=== PATIENT | female | born 1960 | race Caucasian/White ===

== ENCOUNTER 2025-09-16 17:13 | Emergency (ER) | payer MEDICARE, SELFPAY ==
--- OUTSIDE RECORDS SUMMARY | 2024-03-01 09:37 | XMS_ITS | Continuity of Care Document ---
Author Organization 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 May substitute with whatever prep you can get Sutab 1.479-0.188-0.225 gram tablet take by oral route as directed per package instructions for procedure on 12/12/21 - Active pt to bring in coupon Keflex 500 mg capsule take 1 capsule by oral route every 8 hours for 7 500 MG - Active metformin ER 500 mg tablet,extended release 24 hr take 2 tablet by oral route every day with the evening meal 1000 MG - Active anastrozole 1 mg tablet take 1 tablet by oral route every day 1 MG - Active Jardiance 25 mg tablet take 1 tablet by oral route every day 25 MG - Active amlodipine 5 mg tablet take 1 tablet by oral route every day 5 MG - Active aspirin 81 mg tablet,delayed release take 1 tablet by oral route every day 81 MG - Active atorvastatin 40 mg tablet take 1 tablet by oral route every day 40 MG - Active Insulin Syringe MicroFine 1 mL 27 gauge x 5/8 use to inject insulin daily - Active Levemir U-100 Insulin 100 unit/mL subcutaneous solution inject 90 units under the skin every day - Active losartan 100 mg tablet take 1 tablet by oral route every day 100 MG - Active multivitamin capsule take 1 Capsule by Oral route once daily - Active True Metrix Glucose Test Strip use one strip to test twice daily fasting and two hours after eating - Active Victoza 3-Jesse 0.6 mg/0.1 mL (18 mg/3 mL) subcutaneous pen injector inject 0.6 milliliter by subcutaneous route daily x1 week then increase to 1.2mg daily - Active Procedures Procedure Date COLONOSCOPY AND BIOPSY SIGMOIDOSCOPY W/TUMR REMOVE DIAGNOSTIC COLONOSCOPY ELECTROCARDIOGRAM REPORT OFFICE/OUTPATIENT VISIT, EST POSTOP FOLLOW-UP VISIT PARTIAL MASTECTOMY BIOPSY/REMOVAL, LYMPH NODES US Exam, Breast Complete LYMPH SYSTEM IMAGING Tc99m sulfur colloid OFFICE/OUTPATIENT VISIT, EST Surgical trays Breast Biopsy First Lesion W Imaging March OFFICE CONSULTATION Advance Directives Directive Yes / No Effective Date File Name No Information Encounters Encounter Description Practice Location Reason(s) For Visit Diagnoses Date Provider Providers Copied on Encounter [facility], [address] [place], [place], [id number] , [place] tel: [phone] PAK No Information 4 Giacomo Bush. [address], [place], [id number] , [place]. tel: [phone] [facility], [address], [place], [id number] , [place] tel: [phone] [facility] No Information 4 Giacomo Bush. [address], [place], [id number] , [place]. tel: [phone] Referring Provider: Inga Zapata, [address], [place], [address]. tel:[phone] [facility], [address], [place], [id number] , [place] tel: [phone] PAK No Information 4 Giacomo Bush. [address] [place], [id number] , [place]. tel: [phone] [facility], [address] [place], [address] , [place] tel: [phone] [facility] No Information 2 Giacomo Bush. [address], [address] , [place]. tel: [phone] Referring Provider: Andres Beverly, [address] [place], [address]. tel:[phone] [facility], [address], [place], [address] , [place] tel: [phone] [facility] No Information 2 Riky Gordon. [address], [place], [id number] , [place]. tel: [phone] Referring Provider: Andres Beverly, [address] [place], [address]. tel:[phone] [facility], [address] [place], [address] , [place] tel: [phone] [facility] No Information 1 Riky Gordon. [address], [place], [id number] , [place]. tel: [phone] [facility], [address] [place], [id number] , [place] tel: [phone] [facility] No Information 0 Arvin Mancini. [address], [id number] , [place]. tel: [phone] Referring Provider: Blanca Shannon, [address] [place], [address] . tel:[phone] OFFICE/OUTPATI ENT VISIT, [facility], [address], [address] , [place] tel: [phone] [facility] Left Breast tenderness (chief complaint) Acute mastitis of left breast Collin Christo. [address], [address] , [place]. tel: [phone] Referring Provider: Heber Mares, [address] [place], [address]. tel:[phone] [facility], [address] [place], [id number] , [place] tel: [phone] [facility] PO Lt Breast Lumpectomy w/SLN Exc 05/12 (chief complaint) Encounter for other specified surgical aftercare 9 Collin Christo. [address], [id number] , [place]. tel: [phone] Referring Provider: Christo Maldonado, [place], [address] . tel:[phone] [facility], [address] [place], [id number] , [place] tel: [phone] [facility] No Information Collin Christo. [address] [place], [address] , [place]. tel: [phone] Referring Provider: Christo Maldonado, [place], [address] . tel:[phone] [facility], [address] [place], [id number] , [place] tel: [phone] [facility] No Information Collin Christo. [address] [place], [address] , [place]. tel: [phone] Referring Provider: Christo Maldonado, [place], [address] . tel:[phone] OFFICE/OUTPATI ENT VISIT, EST [facility], [address] [place], [id number] , [place] tel: [phone] [facility] Consult Lt Breast Cancer (chief complaint) Malignant neoplasm of upper-outer quadrant of left breast in female, estrogen receptor positiveEstrogen receptor positive status [ER+] Collin Christo. [address], [place], [id number] , . tel: [phone] Referring Provider: Amy Pillai, [address] [place] [address], [address]. tel:[phone] OFFICE CONSULTATION [facility], [address], [place], [id number] , tel: [phone] [facility] Breast Lump (chief complaint) Breast mass in female 9 Collin Christo. [address], [place], [id number] , . tel: [phone] Referring Provider: Amy Pillai, [address] [place] [address], [address]. tel:[phone] [facility], [address], [place], [id number] , tel: [phone] [facility] No Information 9 Collin Christo. [address], [place], [id number] , . tel: [phone] Family History Family Member Type Diagnosis Age At Onset Father Problem (finding) Maternal uncle Problem (finding) Myocardial infarction Mother Problem (finding) Alive and well Father Problem (finding) Myocardial infarction Paternal uncle Problem (finding) Myocardial infarction Mother Problem (finding) Diabetes mellitus Problem (finding) Paternal uncle Problem (finding) Alive and well Paternal uncle Problem (finding) Maternal uncle Problem (finding) Alive and well Payers Payer name Insurance type Covered constitution party ID Authoriza tion(s) [facility] [id number] Social History Type Description Quantity Date Captured Comments Sex Female Smoking Status No Information Chief Complaint And Reason For Visit No Information Reason For Referral Reason For Referral No Information History Of Present Illness Encounter Date Complaint History Of Prese nt Illness Left Breast tenderness The sympt oms began 1 week ago. The symptoms are reported as being mild. The symptoms occur constantly. The location is left breast. The patient developed swelling and tenderness of her left breast about a week ago. The patient notes that it is uncomfortable. She notes no masses that she is identified. The patient underwent sonogram which I reviewed which shows no significant abnormalities. The patient is due for a bilateral mammogram 6 months after her radiation which would be in January. PO Lt Breast Lumpect yvon w/SLN Exc 05/12 Patient returns after undergoing successful left breast lumpectomy and sentinel lymph node excision. The patient is doing well and the incisions are healing well. The patient's pathology revealed a 1.3 cm tumor which was not metastatic to the lymph nodes. The patient's tumor was sent for Oncotype. The patient is going to be referred to oncology when that Oncotype test is back. The patient deny are pleased with her operative outcome. I greatly appreciate you involving me in the care of this patient. Should I be able to help you any further with this patient or any other patient in the future please do not hesitate to let me know. Consult Lt Breast Cancer The sym ptoms began 1 week ago. The symptoms are reported as being mild. The symptoms occur constantly. The location is left breast. The patient had a left breast mass that was seen on mammogram and underwent ultrasound guided biopsy by me after a previous biopsy was negative. 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 The patient comes to see me to discuss management. This mass was present at the 12 o'clock position. Lt Breast Lump The symptoms beg an 2 months ago. The symptoms are reported as being mild. The symptoms occur constantly. The location is left breast. The patient has a left breast mass that was felt on self exam. The patient underwent mammogram and sonogram and was found to have a BI-RADS Category 4 lesion. The patient underwent ultrasound guided biopsy. The patient was found to have mild fibrosis and chronic inflammation. The patient comes to discuss this mass.I reviewed the patient's mammogram films and ultrasound films. The patient appears to have a BI-RADS Category 5 mass on my evaluation. In addition the biopsy clip does not look like it is in the same position as the mass and there is defects within the tissue of the breast that appear to be in a different place than the mass as well. Functional Status Date Functional Assessmen t No Information Instructions Date Instruction Additional Infor sterling The patient has what appears to be mastitis of her left breast. I don't really see any significant abnormalities on her ultrasound or physical exam that are concerning. The patient is due for a mammogram in January and I don't know that we need to really do one now because I think that this is either related to radiation change or more likely mastitis. The patient is going to call me if things get worse but we will order a mammogram and bilateral breast MRI in January to evaluate things. I reassured the patient that the findings on physical exam and ultrasound are reassuring that there is no significant pathologic process occurring here other than infection in the setting of previous surgery and radiation. The patients has benign findings on radiology and physical exam. At this point will continue to observe but not procede with any further intervention. I did discuss with patient observation vs. biopsy vs. excision. After discussion patient wants to procede with observation. Related to Acute mastitis of left breast Increase activity. Related to En counter for other specified surgical aftercare The patient has a br east cancer at the 12 o'clock position of her left breast. We discussed in detail the options and after this discussion the patient wants to proceed with a lumpectomy and sentinel lymph node excision. The patient wishes to proceed I discussed with patient the pathogenesis and prognosis of breast cancer. I discussed the patients imaging and path reports with her. I discussed the options for treating breast cancer and discussed multimodalitiy treatment. After this lenghty discussion the patient wants to procede with surgery. I discussed the staging portion of the procedure and the tumor control/excision portion. I discussed the risks, benefits, and alternatives to the operation. The patient wishes to proceed. She understands that the risks include but are not limited to bleeding, infection, reoccurance (local or systemic), surrounding structure injury, WI, DVT, even . Related to Malignant neoplasm of upper-outer quadrant of left breast in female, estrogen receptor positive The patient has a br east mass that I think is very concerning for a left breast cancer. Looking at the films and reviewing things, I think that the lesion was not biopsied and the area around the lesion was biopsied. I don't think that this biopsy result is consistent with the clinical findings and have suggested a repeat biopsy, which I did in the office today. I think the patients breast mass is likely malignant. I discussed with patient observation vs. biopsy vs. excision. After discussion patient wants to procede with biopsy. Discussed with patient risks, benefits and alternatives, to procedure and the patient wishes to procede. The patient understands that the risks are bleeding, infection, nondiagnostic biopsy. The patient wishes to procede. Related to Breast mass in female Assessments Type Assessment Date No Information Patient Care Teams Name Effective Dates (start - stop) Status Members No Information
[2025-09-16 17:21] VITALS: BP 136/76; PULSE 128; RESP 18; TEMP 39; O2SAT 95; BMI 20.7
--- NOTE | 2025-09-16 17:27 | XRR_ITS ---
PROCEDURE INFORMATION: Exam: XR Chest Exam date and time: 09/16/2025 5:34 PM Age: 65 years old Clinical indication: Other: Sepsis; Prior surgery; Surgery date: 6+ months; Surgery type: Lumpectomy; Additional info: Possible sepsis TECHNIQUE: Imaging protocol: Radiologic exam of the chest. Views: 1 view. COMPARISON: No relevant prior studies available. FINDINGS: Lungs: Unremarkable. No consolidation. Pleural spaces: Unremarkable. No pleural effusion. No pneumothorax. Heart/Mediastinum: Mild tortuosity thoracic aorta. No cardiomegaly. Bones/joints: Mild degenerative changes thoracic spine. Mild degenerative changes glenohumeral joints. Upper abdomen: Unremarkable. Chest wall : Surgical clips left breast. XR/XR chest 1V portable 34000 IMPRESSION: No acute findings.
--- NOTE | 2025-09-16 17:31 | CTR_ITS ---
PROCEDURE INFORMATION: Exam: CT Abdomen And Pelvis With Contrast Exam date and time: 09/16/2025 7:29 PM Age: 65 years old Clinical indication: Abdominal pain; Localized; Prior surgery; Surgery date: 6+ months; Surgery type: Hysterectomy; C/O upper abd pain TECHNIQUE: Imaging protocol: Computed tomography of the abdomen and pelvis with contrast. Radiation optimization: All CT scans at this facility use at least one of these dose optimization techniques: automated exposure control; mA and/or kV adjustment per patient size (includes targeted exams where dose is matched to clinical indication); or iterative reconstruction. Contrast material: OMNI 350; Contrast volume: 80 ml; Contrast route: INTRAVENOUS (IV); COMPARISON: CR (CHEST, ) 09/16/2025 5:34 PM RADIATION DOSE METRICS: Total DLP (mGy-cm): 387.62 FINDINGS: Lower chest: Heart size is normal. Lungs are clear of an acute process. Liver: Normal. No mass. Gallbladder and biliary ducts: Normal. No calcified stones. No ductal dilation. Pancreas: Normal. No ductal dilation. Spleen: Normal. No splenomegaly. Adrenal glands: Normal. No mass. Kidneys and ureters: Normal. No hydronephrosis. Stomach and bowel: Stomach unremarkable. Diffuse wall thickening, thickening of the folds, of the small bowel left lower abdomen, mid and lower abdomen and upper pelvis. Distension of small bowel measuring up to 3.8 cm in diameter. Mesenteric edema and enlarged mesenteric lymph nodes on the left measuring up to 1.57 cm in diameter. The colon is not involved. Colon contains aytegsll-ja-woezo amount of fecal material. No obstruction. No wall thickening of the colon. Appendix: No evidence of appendicitis. Intraperitoneal space: Unremarkable. No free air. No significant fluid collection. Vasculature: Moderate atherosclerosis abdominal aorta. No abdominal aortic aneurysm. Lymph nodes: Unremarkable. No enlarged lymph nodes. Urinary bladder: Moderate distension. Reproductive: Apparent hysterectomy. Bones/joints: Narrowing of L5-S1 disc space with vacuum disc phenomenon. Adjacent degenerative changes vertebral bodies. Milder degenerative changes elsewhere. Soft tissues: Unremarkable. CT/CT abdomen pelvis w con* [id number] IMPRESSION: 1. Findings most consistent with a diffuse enteritis most marked involving jejunum. Wall thickening, distension, mesenteric edema and enlarged mesenteric lymph nodes. This probably inflammatory/infectious. Crohn's disease should be considered . 2. Juacvsna-dp-mgtpx amount of fecal material in the colon. Correlate for symptoms of constipation. 3. Atherosclerosis. 4. Hysterectomy. 5. Degenerative changes lumbar spine marked at L5-S1. 6. Moderate distension of the urinary bladder.
--- NOTE | 2025-09-16 17:32 | ED_ITS ---
Documented by User: Bismark Carrillo MD 09/16/25 17:48 HPI - Abdominal Pain 2 General: Chief Complaint: Abdominal Pain Stated Complaint: dizzy, tingling in legs since yesterday Time Seen by Provider: 09/16/25 17:28 Source: patient Mode of arrival: ambulatory Limitations: no limitations History of Present Illness: 65-year-old female states she is abdomin al pain since this morning. States been diffuse pain also has been febrile is febrile 102 here. States that pain is sharp in nature rates it a 6 out of 10 she denies any vomiting or diarrhea she denies any dysuria. Denies any worse improved factors. Associated Symptoms: Reports chills and fever(s) Related Data Previous Rx's ?Medication ?Instructions ?Recorded ciprofloxacin HCl 500 mg tablet 500 mg PO BID #14 tabs 09/16/25 metronidazole 500 mg tablet 500 mg PO Q8H 7 days #21 t abs 09/16/25 ondansetron 4 mg disintegrating 4 mg PO Q6H PRN nausea and 09/16/25 tablet vomiting #14 tabs Allergies Allergy/AdvReac Type Severity Reaction Status Date / Time No Known Allergies Allergy Verified 09/16/25 17:26 Review of Systems 2 Const: Reports: fever(s) and chills Resp: Reports: dyspnea Physical Exam 2 Const: COMMON NORMALS: patient oriented x3 HENMT: COMMON NORMALS: normocephalic and atraumatic HEAD & SCALP: n ormocephalic and atraumatic Neck/C-Spine: COMMON NORMALS: full ROM and supple Chest: COMMONS NORMALS: normal inspection of the chest and normal palpation of entire chest wall Resp: COMMON NORMALS: normal respiratory effort, No retractions, No use of accessory muscles and clear to auscultation bilaterally AUSCULTATION: clear to auscultation bilaterally Cardio: COMMON NORMALS: regular rhythm and No murmurs present (Cardio) R ATE: tachycardic RHYTHM: regular rhythm GI: COMMON NORMALS: Normal to inspection, nondistended, normoactive bowel sounds present, Soft to palpation and no masses PALPATION: Yes Soft to palpation OTHER: diffuse tenderness Extremity: COMMON NORMALS: normal to inspection and full ROM Neuro: COMMON NORMALS: patient oriented x3, moves all extremities and no focal motor deficits Psych: COMMON NORMALS: mental status grossly normal, Normal thought process present and cooperative THOUGHT PROCESS: Normal thought process present Skin: COMMON NORMALS: no rashes or lesions noted and no wounds GENERAL SKIN EXAM: no rashes or lesions noted Course 2 Vital Signs: Vital signs: Vital Signs Temperature 99.8 F H 09/16/25 19:22 Pulse Rate 89 09/16/25 20:23 Respiratory Rate 18 09/16/25 17:21 Blood Pressure 120/68 09/16/25 21:07 Pulse Oximetry 94 09/16/25 20:23 Oxygen Delivery Me thod Room Air 09/16/25 20:23 MDM - Abdominal Pain Medical Decision Making Patient presents with fever along with abdominal pain. I did order labs along with sepsis bolus and blood cultures. Patient's care turned over to Dr. Palacio at this time with labs and CT imaging pending. Medical Records I reviewed the patient's medical records. Lab Data I reviewed the patient's lab results. 09/16/25 17:50 09/16/25 17:50 Labs/Radiology: Radiology Impressions Chest X-Ray 09/16/25 17:27 IMPRESSION: No acute findings. Abdomen/Pelvis CT 09/16/25 17:31 IMPRESSION: 1. Findings most consistent with a diffuse enteritis most marked involving jejunum. Wall thickening, distension, mesenteric edema and enlarged mesenteric lymph nodes. This probably inflammatory/infectious. Crohn's disease should be considered . 2. [id number] amount of fecal material in the colon. Correlate for symptoms of constipation. 3. Atherosclerosis. 4. Hysterectomy. 5. Degenerative changes lumbar spine marked at L5-S1. 6. Moderate distension of the urinary bladder. Laboratory Results WBC 10.15 10^3/uL (3.29-11.43) 09/16/25 17:50 RBC 4.93 10^6/uL (3.85-5.65) 09/16/25 17:50 Hgb 14.20 g/dL (11.27-16.99) 09/16/25 17:50 Hct 42.2 % (36-47) 09/16/25 17:50 MCV 85.6 fl (85-98) 09/16/25 17:50 MCH 28.8 pg (27-33) 09/16/25 17:50 MCHC 33.6 g/dL (30-55) 09/16/25 17:50 RDW 12.1 % (12.1-15.1) 09/16/25 17:50 Plt Count 253 10^3/cmm (157-399) 09/16/25 17:50 MPV 9.6 fL (7.4-10.4) 09/16/25 17:50 Neut % (Auto) 82.5 % 09/16/25 17:50 Lymph % (Auto) 8.7 % 09/16/25 17:50 Real % (Auto) 7.5 % 09/16/25 17:50 Eos % (Auto) 0.6 % 09/16/25 17:50 Baso % (Auto) 0.4 % 09/16/25 17:50 Neut # (Auto) 8.38 10^3/uL (1.8-7.7) H 09/16/25 17:50 Lymph # (Auto) 0.9 10^3/uL (0.8-4.8) 09/16/25 17:50 Real # (Auto) 0.8 10^3/uL (0.2-0.9) 09/16/25 17:50 Eos # (Auto) 0.1 10^3/uL (0.0-0.8) 09/16/25 17:50 Baso # (Auto) 0.0 10^3/uL (0.0-0.1) 09/16/25 17:50 Nucleated RBC % (auto) 0 % 09/16/25 17:50 Nucleated RBCs # 0.0 /100WBC 09/16/25 17:50 Sodium 131 mmol/L (136-145) L 09/16/25 17:50 Potassium 4.0 mmol/L (3.5-5.1) 09/16/25 17:50 Chloride 97 mmol/L (98-107) L 09/16/25 17:50 Carbon Dioxide 19 mmol/L (22-29) L 09/16/25 17:50 Anion Gap 19.0 (5-19) 09/16/25 17:50 BUN 11 mg/dL (8-23) 09/16/25 17:50 Creatinine 0.5 mg/dL (0.5-0.9) 09/16/25 17:50 GFR Calculation 123.8 mL/min (90-130) 09/16/25 17:50 Glucose 203 mg/dL (65-115) H 09/16/25 17:50 Calculated Osmolality 277 mOsm/kg (285-295) L 09/16/25 17:50 Lactic Acid 1.4 mmol/L (0.5-2.2) 09/16/25 17:50 Calcium 9.6 mg/dL (8.5-10.5) 09/16/25 17:50 Total Bilirubin 0.6 mg/dL (0.15-1.2) 09/16/25 17:50 AST 17 U/L (0-32) 09/16/25 17:50 ALT 14 U/L (0-33) 09/16/25 17:50 Alkaline Phosphatase 89 U/L (35-105) 09/16/25 17:50 Total Protein 7.4 g/dL (6.6-8.7) 09/16/25 17:50 Albumin 4.0 g/dL (3.5-5.2) 09/16/25 17:50 Globulin 3.4 g/dL (1.3-4.6) 09/16/25 17:50 Urine Color Yellow (Yellow) 09/16/25 19:15 Urine Appearance Clear (CLEAR) 09/16/25 19:15 Urine pH 5.0 (5-7) 09/16/25 19:15 Ur Specific Presto 1.051 (1.005-1.030) H 09/16/25 19:15 Urine Protein Negative (Negative) 09/16/25 19:15 Urine Glucose (UA) 3+ (Normal) H 09/16/25 19:15 Urine Ketones 1+ (Negative) H 09/16/25 19:15 Urine Blood Negative (Negative) 09/16/25 19:15 Urine Nitrate Negative (Negative) 09/16/25 19:15 Urine Bilirubin Negative (Negative) 09/16/25 19:15 Urine Urobilinogen 0.2 mg/dL (Negative) 09/16/25 19:15 Ur Leukocyte Esterase Negative (Negative) 09/16/25 19:15 Urine RBC 0-2 /hpf (0-2) 09/16/25 19:15 Urine WBC 0-5 /hpf (0-5) 09/16/25 19:15 Ur Squamous Epith Cells 0-5 /hpf (0-5) 09/16/25 19:15 Amorphous Sediment Not Reportable 09/16/25 19:15 Urine Bacteria None seen /hpf (NONE) 09/16/25 19:15 Hyaline Casts 0-4 /lpf H 09/16/25 19:15 Influenza A (PCR) Negative (Negative) 09/16/25 17:50 Influenza Type B (PCR) Negative (Negative) 09/16/25 17:50 RSV (PCR) Negative (Negative) 09/16/25 17:50 SARS-CoV-2 (PCR) Negative (Negative) 09/16/25 17:50 All radiology interpretation(s) finalized by discharge EKG Data EKG 1: I personally reviewed and interpreted this EKG as follows: EKG interpretation date: 09/16/25 EKG interpretation time: 17:34 Interpretation: sinus tach hr [address] elevation qrs 96 qtc 411 Discharge Plan Discharge Patient Disposition: Home Clinical Impression: Enteritis Condition: Stable Prescriptions: New ciprofloxacin HCl 500 mg tablet 500 mg PO BID Qty: 14 0RF metronidazole 500 mg tablet 500 mg PO Q8H 7 Days Qty: 21 0RF ondansetron 4 mg tablet,disintegrating 4 mg PO Q6H PRN (Reason: nausea and vomiting) Qty: 14 0RF Discharge Orders: Discharge ED (Routine); Ordered 09/16/25 Ordered By: Reggie Palacio Patient Instructions: Abdominal Pain (ED), Enteritis (ED), Opioid Safety, Pain Management, Patient Portal & Quentin Instructions Activity Restrictions/Additional Instructions: Antibiotics as directed. Drink plenty of liquids. Return for worsening pain despite treatment, fever despite 3-4 more doses of antibiotics, vomiting liquids or medications, any other concerning symptoms. Follow-up with your doctor. Call tomorrow for follow-up appointment. Print Language: Yi Coding Level of Care Code ED Epic Ambulatory Analyst for Chg Fwd Documented by User: Reggie Palacio DO 09/16/25 21:13 HPI - Abdominal Pain 2 General: Chief Complaint: Abdominal Pain Stated Complaint: dizzy, tingling in legs since yesterday Time Seen by Provider: 09/16/25 17:28 Related Data Previous Rx's ?Medication ?Instructions ?Recorded ciprofloxacin HCl 500 mg tablet 500 mg PO BID #14 tabs 09/16/25 metronidazole 500 mg tablet 500 mg PO Q8H 7 days #21 t abs 09/16/25 ondansetron 4 mg disintegrating 4 mg PO Q6H PRN nausea and 09/16/25 tablet vomiting #14 tabs Allergies Allergy/AdvReac Type Severity Reaction Status Date / Time No Known Allergies Allergy Verified 09/16/25 17:26 Course 2 Vital Signs: Vital signs: Vital Signs Temperature 99.8 F H 09/16/25 19:22 Pulse Rate 89 09/16/25 20:23 Respiratory Rate 18 09/16/25 17:21 Blood Pressure 120/68 09/16/25 21:07 Pulse Oximetry 94 09/16/25 20:23 Oxygen Delivery Me thod Room Air 09/16/25 20:23 MDM - Abdominal Pain Medical Decision Making Patient presents with fever along with abdominal pain. I did order labs along with sepsis bolus and blood cultures. Patient's care turned over to Dr. Palacio at this time with labs and CT imaging pending. 65-year-old female received in checkout from Dr. Carrillo at shift change. Temperature is improved after acetaminophen. She is resting comfortably. She remains normotensive. Heart rate is down below 100 as well after fluid bolus. CBC is normal. BMP shows a sodium of 131 bicarbonate 19. Urinalysis is negative. CT shows a significant enteritis worst involving the jejunum. There is some lymph nodes as well. Likely the source of her symptoms. Swabs for flu COVID and RSV are negative. Given the significance of her symptoms, fever, and CT findings, she will be covered with antibiotics. She is stable for discharge. Return for new or worsening symptoms. Lab Data 09/16/25 17:50 09/16/25 17:50 Labs/Radiology: Radiology Impressions Chest X-Ray 09/16/25 17:27 IMPRESSION: No acute findings. Abdomen/Pelvis CT 09/16/25 17:31 IMPRESSION: 1. Findings most consistent with a diffuse enteritis most marked involving jejunum. Wall thickening, distension, mesenteric edema and enlarged mesenteric lymph nodes. This probably inflammatory/infectious. Crohn's disease should be considered . 2. Jieoqbly-mv-izxgh amount of fecal material in the colon. Correlate for symptoms of constipation. 3. Atherosclerosis. 4. Hysterectomy. 5. Degenerative changes lumbar spine marked at L5-S1. 6. Moderate distension of the urinary bladder. Laboratory Results WBC 10.15 10^3/uL (3.29-11.43) 09/16/25 17:50 RBC 4.93 10^6/uL (3.85-5.65) 09/16/25 17:50 Hgb 14.20 g/dL (11.27-16.99) 09/16/25 17:50 Hct 42.2 % (36-47) 09/16/25 17:50 MCV 85.6 fl (85-98) 09/16/25 17:50 MCH 28.8 pg (27-33) 09/16/25 17:50 MCHC 33.6 g/dL (30-55) 09/16/25 17:50 RDW 12.1 % (12.1-15.1) 09/16/25 17:50 Plt Count 253 10^3/cmm (157-399) 09/16/25 17:50 MPV 9.6 fL (7.4-10.4) 09/16/25 17:50 Neut % (Auto) 82.5 % 09/16/25 17:50 Lymph % (Auto) 8.7 % 09/16/25 17:50 Real % (Auto) 7.5 % 09/16/25 17:50 Eos % (Auto) 0.6 % 09/16/25 17:50 Baso % (Auto) 0.4 % 09/16/25 17:50 Neut # (Auto) 8.38 10^3/uL (1.8-7.7) H 09/16/25 17:50 Lymph # (Auto) 0.9 10^3/uL (0.8-4.8) 09/16/25 17:50 Real # (Auto) 0.8 10^3/uL (0.2-0.9) 09/16/25 17:50 Eos # (Auto) 0.1 10^3/uL (0.0-0.8) 09/16/25 17:50 Baso # (Auto) 0.0 10^3/uL (0.0-0.1) 09/16/25 17:50 Nucleated RBC % (auto) 0 % 09/16/25 17:50 Nucleated RBCs # 0.0 /100WBC 09/16/25 17:50 Sodium 131 mmol/L (136-145) L 09/16/25 17:50 Potassium 4.0 mmol/L (3.5-5.1) 09/16/25 17:50 Chloride 97 mmol/L (98-107) L 09/16/25 17:50 Carbon Dioxide 19 mmol/L (22-29) L 09/16/25 17:50 Anion Gap 19.0 (5-19) 09/16/25 17:50 BUN 11 mg/dL (8-23) 09/16/25 17:50 Creatinine 0.5 mg/dL (0.5-0.9) 09/16/25 17:50 GFR Calculation 123.8 mL/min (90-130) 09/16/25 17:50 Glucose 203 mg/dL (65-115) H 09/16/25 17:50 Calculated Osmolality 277 mOsm/kg (285-295) L 09/16/25 17:50 Lactic Acid 1.4 mmol/L (0.5-2.2) 09/16/25 17:50 Calcium 9.6 mg/dL (8.5-10.5) 09/16/25 17:50 Total Bilirubin 0.6 mg/dL (0.15-1.2) 09/16/25 17:50 AST 17 U/L (0-32) 09/16/25 17:50 ALT 14 U/L (0-33) 09/16/25 17:50 Alkaline Phosphatase 89 U/L (35-105) 09/16/25 17:50 Total Protein 7.4 g/dL (6.6-8.7) 09/16/25 17:50 Albumin 4.0 g/dL (3.5-5.2) 09/16/25 17:50 Globulin 3.4 g/dL (1.3-4.6) 09/16/25 17:50 Urine Color Yellow (Yellow) 09/16/25 19:15 Urine Appearance Clear (CLEAR) 09/16/25 19:15 Urine pH 5.0 (5-7) 09/16/25 19:15 Ur Specific Presto 1.051 (1.005-1.030) H 09/16/25 19:15 Urine Protein Negative (Negative) 09/16/25 19:15 Urine Glucose (UA) 3+ (Normal) H 09/16/25 19:15 Urine Ketones 1+ (Negative) H 09/16/25 19:15 Urine Blood Negative (Negative) 09/16/25 19:15 Urine Nitrate Negative (Negative) 09/16/25 19:15 Urine Bilirubin Negative (Negative) 09/16/25 19:15 Urine Urobilinogen 0.2 mg/dL (Negative) 09/16/25 19:15 Ur Leukocyte Esterase Negative (Negative) 09/16/25 19:15 Urine RBC 0-2 /hpf (0-2) 09/16/25 19:15 Urine WBC 0-5 /hpf (0-5) 09/16/25 19:15 Ur Squamous Epith Cells 0-5 /hpf (0-5) 09/16/25 19:15 Amorphous Sediment Not Reportable 09/16/25 19:15 Urine Bacteria None seen /hpf (NONE) 09/16/25 19:15 Hyaline Casts 0-4 /lpf H 09/16/25 19:15 Influenza A (PCR) Negative (Negative) 09/16/25 17:50 Influenza Type B (PCR) Negative (Negative) 09/16/25 17:50 RSV (PCR) Negative (Negative) 09/16/25 17:50 SARS-CoV-2 (PCR) Negative (Negative) 09/16/25 17:50 Discharge Plan Discharge Patient Disposition: Home Clinical Impression: Enteritis Condition: Stable Prescriptions: New ciprofloxacin HCl 500 mg tablet 500 mg PO BID Qty: 14 0RF metronidazole 500 mg tablet 500 mg PO Q8H 7 Days Qty: 21 0RF ondansetron 4 mg tablet,disintegrating 4 mg PO Q6H PRN (Reason: nausea and vomiting) Qty: 14 0RF Discharge Orders: Discharge ED (Routine); Ordered 09/16/25 Ordered By: Reggie Palacio Patient Instructions: Abdominal Pain (ED), Enteritis (ED), Opioid Safety, Pain Management, Patient Portal & Quentin Instructions Activity Restrictions/Additional Instructions: Antibiotics as directed. Drink plenty of liquids. Return for worsening pain despite treatment, fever despite 3-4 more doses of antibiotics, vomiting liquids or medications, any other concerning symptoms. Follow-up with your doctor. Call tomorrow for follow-up appointment. Print Language: Yi Coding Level of Care Code ED Epic Ambulatory Analyst for Korina [facility]
--- NOTE | 2025-09-16 17:34 | ECG_ITS ---
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 Measurements Intervals [place] Rate: 117 P: 39 AL: 124 QRS: 34 QRSD: 96 T: 60 QT: 341 QTc: 477 Interpretive Statements SINUS TACHY[address]ARD[address] ST DEVIATION AND MODERATE T-WAVE ABNORMALITY, CONSIDER INFERIOR ISCHEMIA [-0.1+ mV T-WAVE IN II/aVF] No previous ECG available for comparison Electronically Signed On 09-18-2025 22:35:47 BANDSAW OPERATOR by Nevaeh Willett M.D. [email or web address]
[2025-09-16 18:09] LABS: Hematocrit 42.2 % (36-47); Hemoglobin 14.20 g/dL (11.27-16.99); Mean Corpuscular HGB Conc 33.6 g/dL (30-55); Mean Corpuscular Hemoglobin 28.8 pg (27-33); Mean Corpuscular Volume 85.6 fl (85-98); Nucleated Red Blood Cells % 0 %; Platelet Count 253 10^3/cmm (157-399); Red Blood Count 4.93 10^6/uL (3.85-5.65); White Blood Count 10.15 10^3/uL (3.29-11.43)
[2025-09-16 18:25] LABS: Alanine Aminotransferase 14 U/L (0-33); Albumin Level 4.0 g/dL (3.5-5.2); Alkaline Phosphatase 89 U/L (35-105); Anion Gap 19.0 (5-19); Aspartate Amino Transferase 17 U/L (0-32); Blood Urea Nitrogen 11 mg/dL (8-23); Calcium 9.6 mg/dL (8.5-10.5); Carbon Dioxide 19 mmol/L (22-29); Chloride 97 mmol/L (98-107); Creatinine Clr Calc Pharmacy 72.0742; Globulin 3.4 g/dL (1.3-4.6); Glucose 203 mg/dL (65-115); Osmolality Calculated 277 mOsm/kg (285-295); Potassium 4.0 mmol/L (3.5-5.1); Sodium 131 mmol/L (136-145); Total Protein 7.4 g/dL (6.6-8.7)
[2025-09-16 18:26] LABS: Lactic Sepsis W/Reflex 1.4 mmol/L (0.5-2.2)
[2025-09-16] MEDS: iohexol 350 mg/mL 500 mL Btl (per mL) IV (18:31)
[2025-09-16] MEDS: piperacillin-tazobactam 4.5 GM in sodium chloride 0.9% (plus) 50 ML IV (18:43)
[2025-09-16 18:47] LABS: Respiratory Syncytial Virus Ce NEGATIVE (Negative); SARS-CoV-2 PCR NEGATIVE (Negative)
[2025-09-16 19:18] VITALS: BP 116/76; PULSE 101; O2SAT 96
[2025-09-16 19:22] VITALS: TEMP 37.7
[2025-09-16 19:44] LABS: Add Urine Microscopic? YES; Glucose Urine UA 3+ (Normal); Nitrate Urine Negative (Negative)
[2025-09-16 19:54] VITALS: BP 130/98; PULSE 85; O2SAT 95
[2025-09-16 19:54] LABS: Specific Gravity, Urine 1.051 (1.005-1.030)
[2025-09-16 20:23] VITALS: BP 123/66; PULSE 89; O2SAT 94
[2025-09-16 21:07] VITALS: BP 120/68
== END 2025-09-16 21:10 | disposition home or self-care (01) ==
PROVIDERS: Emergency Medicine; Emergency Provider Emergency Medicine
DX: K52.9 Noninfective gastroenteritis and colitis, unspecified (principal); Z11.52 Encounter for screening for COVID-19
CPT/HCPCS: 36415; 71045; 74177; 80053; 81001; 83605; 85025; 87040; 87637; 93005; 96374; 99285; J2543; J7030; J9999